=== PATIENT | male | born 1965 | race Caucasian/White ===

== ENCOUNTER → 2019-10-18 11:00 | Outpatient (BNVA) | payer MEDICAID, SELFPAY | PROVIDERS: Family Provider Nurse Practitioner Family; PCP Nurse Practitioner Family; Visit Provider Internal Medicine | DX: R76.8 Other specified abnormal immunological findings in serum (principal); B19.20 Unspecified viral hepatitis C without hepatic coma | CPT/HCPCS: 80053; 82105; 85025; 87522; 87902 ==

== ENCOUNTER 2019-11-01 06:49 | Outpatient (CLI) | payer MEDICAID, SELFPAY ==
--- NOTE | 2019-11-01 07:15 | US_ITS ---
WS: [id number] RIGHT UPPER QUADRANT ULTRASOUND HISTORY: hepatitis c COMPARISON: None available. Liver: 17.7 cm in length. Very slightly enlarged liver. No mass or bile duct dilatation. Normal echog enicity. Gallbladder: Normally distended gallbladder with no stones or wall thickening. CBD: 4.6 cm Pancreas: Normal size and echogenicity. Right kidney: 9.7 cm in length. Normal echogenicity with no mass or hydronephrosis. Aorta and IVC: Mild atherosclerosis aorta with no aneurysm. No ascites. US/US liver [id number] IMPRESSION: 1. Minimal hepatomegaly. 2. Normal gallbladder.
== END 2019-11-01 06:50 | disposition home or self-care (01) ==
PROVIDERS: PCP Nurse Practitioner; Visit Provider Internal Medicine
DX: B19.20 Unspecified viral hepatitis C without hepatic coma (principal); R16.0 Hepatomegaly, not elsewhere classified
CPT/HCPCS: 76705

== ENCOUNTER → 2019-11-08 14:00 | Outpatient (BNVA) | payer MEDICAID, SELFPAY | PROVIDERS: PCP Nurse Practitioner; Visit Provider Nurse Practitioner Psychiatric/Mental Health | DX: F33.1 Major depressive disorder, recurrent, moderate (principal); F41.1 Generalized anxiety disorder; F15.21 Other stimulant dependence, in remission; F17.210 Nicotine dependence, cigarettes, uncomplicated | CPT/HCPCS: 99214 ==

== ENCOUNTER 2020-01-25 10:28 | Outpatient (CLI) | payer MEDICAID, SELFPAY ==
[2020-01-28 23:01] LABS: HEP C RNA Viral Load Quant <1.18 NOT DETECTED Log IU/mL (NOT DETECTED); HEP C RNA Viral Load Quant <15 NOT DETECTED IU/mL (NOT DETECTED)
== END 2020-01-25 10:29 | disposition home or self-care (01) ==
LOC: LAB 10:31
PROVIDERS: PCP Nurse Practitioner; Visit Provider Internal Medicine
DX: R76.8 Other specified abnormal immunological findings in serum (principal)
CPT/HCPCS: 87522

== ENCOUNTER → 2020-03-24 07:37 | Outpatient (BNVA) | payer MEDICAID, SELFPAY | PROVIDERS: PCP Nurse Practitioner; Visit Provider Nurse Practitioner Psychiatric/Mental Health | DX: F33.1 Major depressive disorder, recurrent, moderate (principal); F41.1 Generalized anxiety disorder; F15.21 Other stimulant dependence, in remission; F17.210 Nicotine dependence, cigarettes, uncomplicated; Z03.89 Encounter for observation for other suspected diseases and conditions ruled out | CPT/HCPCS: 99213 ==

== ENCOUNTER → 2020-04-23 14:20 | Outpatient (BNVA) | payer MEDICAID, SELFPAY | PROVIDERS: PCP Nurse Practitioner; Visit Provider Nurse Practitioner Family | DX: Z20.828 Contact with and (suspected) exposure to other viral communicable diseases (principal) | CPT/HCPCS: 87635 ==

== ENCOUNTER → 2020-05-19 13:28 | Outpatient (BNVA) | payer MEDICAID, SELFPAY | PROVIDERS: PCP Nurse Practitioner; Referring Provider Nurse Practitioner; Visit Provider Dermatology | DX: D48.5 Neoplasm of uncertain behavior of skin (principal); L82.1 Other seborrheic keratosis; L72.0 Epidermal cyst; F17.210 Nicotine dependence, cigarettes, uncomplicated | CPT/HCPCS: 11102; 88304; 99203; 99204 ==

== ENCOUNTER 2020-05-26 12:43 | Outpatient (CLI) | payer MEDICAID, SELFPAY ==
--- NOTE | 2020-05-26 13:00 | CT_ITS ---
WS: [id number] LDCT LUNG CANCER SCREENING TECHNIQUE: Noncontrast CT of the chest with coronal and sagittal reformatted images. CLINICAL INFORMATION: intermediate frame tender smoker COMPARISON: None. DLP: 76.45 mGy.cm DIvol: 1.[address] scans at [facility] use at least one of these dose optimization techniques: automat ed exposure control; mA and/or kV adjustment per patient size (includes targeted exams where dose is matched to clinical indication); or iterative reconstruction. FINDINGS: Moderate chronic resonance changes. Preseptal emphysematous change. Bulla formation in the lung apice s. Subsegmental atelectasis in the lung bases. Normal thyroid gland. No mediastinal or hilar lymphade nopathy. CT/CT lung screening [id number] IMPRESSION: LUNG-RADS: 1-Negative FOLLOW UP: 12 Month: Continue annual screening with LDCT
== END 2020-05-26 12:44 | disposition home or self-care (01) ==
LOC: CT 12:44
PROVIDERS: PCP Nurse Practitioner; Visit Provider Nurse Practitioner
DX: Z12.2 Encounter for screening for malignant neoplasm of respiratory organs (principal); F17.210 Nicotine dependence, cigarettes, uncomplicated
CPT/HCPCS: G0297

== ENCOUNTER → 2020-06-16 07:37 | Outpatient (BNVA) | payer MEDICAID, SELFPAY | PROVIDERS: PCP Nurse Practitioner; Visit Provider Nurse Practitioner Psychiatric/Mental Health | DX: F33.1 Major depressive disorder, recurrent, moderate (principal); F41.1 Generalized anxiety disorder; F15.21 Other stimulant dependence, in remission; F17.210 Nicotine dependence, cigarettes, uncomplicated; Z03.89 Encounter for observation for other suspected diseases and conditions ruled out | CPT/HCPCS: 99213 ==

== ENCOUNTER 2020-08-31 21:40 | Emergency (ER) | payer MEDICAID, SELFPAY ==
[2020-08-31] VITALS (7 sets, daily range): BP systolic 114–118; BP diastolic 72–86; PULSE 65–88; RESP 16; TEMP 36.7–37; O2SAT 92–97; BMI 20.9
--- NOTE | 2020-08-31 21:51 | ED_ITS ---
HPI - Seizure General: Chief Complaint: Seizure Stated Complaint: SEIZURE Time Seen by Provider: 08/31/20 21:50 History of Present Illness: HPI Narrative: Patient is a 55-year-old male comes to the ED via EMS after seizure. Seizure occurred approximately 45 minutes prior to arrival. EMS said that when they arrived he was in postictal state. Patient has a past medical history of seizures and sees Dr. Raphael. He currently takes gabapentin and alprazolam for his seizures. He says for the past couple days he has been out of town and forgot to bring his seizure meds with them. He has not taken them for couple days now. Currently he has some right shoulder pain and a headache. Denies any other symptoms such as vision changes, numbness weakness or tingling to extremities or face, chest pain or shortness of breath. Patient says he does not need any refill on his gabapentin and alprazolam. He says he has meds at home and will be heading back to his house tonight. Associated symptoms: Deny chest pain, chills or fever(s) Review of Systems Const: Denies: fever(s), chills or fatigue Eyes: Denies: change in vision or eye discomfort ENMT: Denies: throat pain, odynophagia, nasal discharge or nasal congestion Card: Denies: chest pain, palpitations, edema, swelling of feet/ankles, dyspnea on exertion or orthopnea Resp: Denies: dyspnea, productive cough or non-productive cough GI: Denies: abdominal pain, nausea, vomiting, diarrhea, constipation or hematochezia : Denies: flank pain, difficulty urinating, dysuria or hematuria Musc: Reports: extremity pain (right shoulder pain); Denies: neck pain, back pain or extremity swelling Skin/Breast: Denies: rash or new lesions Neuro: Reports: headache(s) and seizure-like activity (seizure just prior to arrival); Denies: numbness in extremities or weakness in extremities PFS ED PFSH: Medical History Amphetamine substance use disorder, moderate, in sustained remission Generalized anxiety disorder Hepatitis C antibody positive in blood Major depressive disorder, recurrent episode, moderate with anxious distress Neural foraminal stenosis of cervical spine Nicotine dependence, cigarettes, uncomplicated Surgical History History of appendectomy History of esophagogastroduodenoscopy (EGD) 2013 History of foot surgery History of fusion of cervical spine History of rotator cuff surgery 8 times total 5 on right and 3 on left History of tonsillectomy and adenoidectomy Family History Father Cancer prostate Social History Smoking and tobacco status: current every day smoker Second hand smoke exposure: No Smoking risk assessment/counseling performed?: No Alcohol intake: unknown Desire information about alcohol rehabilitation?: No Counseling given: No Desire information about substance/drug rehabilitation?: No Counseling given: No Caregiver/support person: No Lives independently: Yes Household members: spouse Housing: House Marital status: Number of children: 1 service: No Current occupational status: disabled History of recent travel: No Current gender identity: Male Physical Exam Const: COMMON NORMALS: patient oriented x3 and alert HENMT: COMMON NORMALS: normocephalic HEAD & SCALP: normocephalic MOUTH: Normal oral and palatal mucosa present THROAT: posterior oropharynx normal and uvula midline Eye: COMMON NORMALS: Equal, round and reactive pupils present, EOMs intact bilaterally and normal visual villagran by confrontation PUPIL: Yes Equal, round and reactive pupils present Neck/C-Spine: COMMON NORMALS: supple GENERAL: Yes normal visual inspection Resp: COMMON NORMALS: normal respiratory effort, No retractions, No use of accessory muscles and clear to auscultation bilaterally AUSCULTATION: clear to auscultation bilaterally Cardio: COMMON NORMALS: regular rate, regular rhythm, S1 normal heart sound present, S2 normal heart sound present, No gallops present (Cardio), No clicks present (Cardio), No murmurs present (Cardio) and Peripheral pulses 2+ throughout RATE: regular rate RHYTHM: regular rhythm HEART SOUNDS: S1 normal heart sound present and S2 normal heart sound present PERIPHERAL PULSES: Peripheral pulses 2+ throughout GI: COMMON NORMALS: Normal to inspection, nondistended, normoactive bowel sounds present, Soft to palpation, non-tender and no masses PALPATION: Yes Soft to palpation : COMMON NORMALS: Yes no CVA tenderness BLADDER/KIDNEY EXAM: Yes no CVA tenderness Back/Pelvis: COMMON NORMALS: no CVA tenderness Extremity: NARRATIVE EXTREMITY EXAM: Patient's right shoulder has tenderness to palpation over the anterior aspect no edema, ecchymosis or visible deformity seen. Neurovascular intact distally. GENERAL: Yes normal exam except as noted Neuro: MILAGRO COMA SCALE: document GCS findings Milagro coma scale eye opening: Spontaneous Clinton coma scale verbal response: Orientated Clinton coma scale motor response: Obey commands Clinton coma scale total score: 15 COMMON NORMALS: patient oriented x3, CN's II-XII intact bilaterally, moves all extremities, no focal motor deficits and no sensory deficits noted SENSORIUM/ORIENTATION: Yes alert CRANIAL NERVES: Yes CN normal except as noted COORDINATION/BALANCE: [id number] test normal SENSORY EXAM: Yes extremities (Soft touch sensation intact to all extremities.) MOTOR EXAM: 5/5 motor strength present throughout COORDINATION: [id number]-[id number] test normal Skin: GENERAL SKIN EXAM: dry skin Course Vital Signs: Vital signs: Vital Signs Temperature 98.1 F 08/31/20 23:58 Pulse Rate 69 08/31/20 23:58 Respiratory Rate 16 08/31/20 23:58 Blood Pressure 117/72 08/31/20 23:58 Pulse Oximetry 93 08/31/20 23:58 MDM - Seizure MDM Narrative: Medical decision making narrative: Patient is a 55-year-old male comes to the ED after having a seizure. Patient has history of seizures and takes gabapentin and alprazolam for them. Patient was traveling away from home over the past couple days and forgot to bring his seizure meds, so he has not been taking them for couple days. His only complaint after seizure was a headache and right shoulder pain. Patient came into the ED and was alert and oriented x3. Neuro exam was normal. CT of head showed no acute findings and CT of cervical spine showed no acute fractures. Right shoulder x-ray shows a lot of chronic joint deterioration and bone calcification, but no acute fractures. Patient was needing an orthopedic referral for his right shoulder since his recent orthopedic doctor retired. I placed an order with case management for patient be referred to orthopedic doctor-patient would like to see Dr. Chaudhry. Patient was given Ativan while here in the ED the had no other seizure activity while here. Patient told to follow-up with his PCP in 7 to 10 days. He was informed that wrapper caser will be contacting him in the next several days set up appoint with orthopedic doctor. Return to ED precautions given. He was told to make sure he takes his antiseizure meds as prescribed to prevent any more seizures. Patient understood and agreed with plan. Imaging Data^: CT Head: Attestation: I personally reviewed and interpreted this imaging study as follows: Radiologist's impression: [employer] [place] [address] CT Scan Report Signed Patient: Pal Galindo Unit #: [id number] : 1965 Age/Sex: 55 / M ADM Date: 08/31/20 Loc: ER Room/Bed: Attending Dr: Ordering Provider/Ordering MD: Elvis Mcgee Date of Service: 08/31/20 Procedure(s): CT head wo con* [id number] Accession Number(s): [id number] Report Number: [id number] PROCEDURE INFORMATION: Exam: CT Head Without Contrast Exam date and time: 08/31/2020 9:56 PM Age: 55 years old Clinical indication: Condition or disease; Convulsions or seizures; Patient HX: S/P tonic clonic seizure TECHNIQUE: Imaging protocol: Computed tomography of the head without contrast. Total images: 190 Radiation optimization: All CT scans at this facility use at least one of these dose optimization techniques: automated exposure control; mA and/or kV adjustment per patient size (includes targeted exams where dose is matched to clinical indication); or iterative reconstruction. COMPARISON: CT head wo con* [id number] 04/15/2017 12:05 PM RADIATION DOSE METRICS: Total DLP (mGy-cm): 753.46 FINDINGS: Brain: No evidence of active or acute intracranial pathologic process, hemorrhage, or trauma. No visible evidence of diffuse cerebral edema or generalized demyelination. Unremarkable white matter. No mass effect. No midline shift. Cerebral ventricles: No ventriculomegaly. Bones/joints: Unremarkable. No acute fracture. Paranasal sinuses: Visualized sinuses are unremarkable. No fluid levels. Mastoid air cells: Visualized mastoid air cells are well aerated. Soft tissues: Unremarkable. CT/CT head wo con* [id number] IMPRESSION: No acute intracranial abnormality. Radiation Dose CTDIVOL = (mGy): DLP = 753.46 (mGy-cm) Dictated By: Merrick Vazquez Signed By: Merrick Vazquez Signed Date/Time: 08/31/202219 DD/ [address]: Attestation: I personally reviewed and interpreted this imaging study as follows: Radiologist's impression: [employer] [place] [address] CT Scan Report Signed Patient: Pal Galindo Unit #: [id number] : [id number] Age/Sex: 55 / M ADM Date: 08/31/20 Loc: ER Room/Bed: Attending Dr: Ordering Provider/Ordering MD: Elvis Mcgee Date of Service: 08/31/20 Procedure(s): CT cervical spin wo con* [id number] Accession Number(s): [id number] Report Number: [id number] PROCEDURE INFORMATION: Exam: CT Cervical Spine Without Contrast Exam date and time: 08/31/2020 9:56 PM Age: 55 years old Clinical indication: Injury or trauma; Blunt trauma; Prior surgery; Surgery date: 6+ months; Surgery type: Acdf; Patient HX: S/P tonic clonic seizure C/O neck/r shoulder pain TECHNIQUE: Imaging protocol: Computed tomography images of the cervical spine without contrast. Total images: 269 Radiation optimization: All CT scans at this facility use at least one of these dose optimization techniques: automated exposure control; mA and/or kV adjustment per patient size (includes targeted exams where dose is matched to clinical indication); or iterative reconstruction. COMPARISON: CT Cervical Spine wo* [id number] 08/24/2017 4:08 AM RADIATION DOSE METRICS: Total DLP (mGy-cm): 480.14 FINDINGS: Bones/joints: No visible fracture, subluxation, or dislocation. Status post fusion with anterior compression plate and screw fixation C3, C4, and C5. Advanced degenerative disease with spondylosis deformans. Degenerative disease of the joints of Luschka. Facet arthrosis most advanced on the left C5/C6 with subchondral cyst formation. Bone cyst T1 vertebral body. Minimal scoliotic curvature. Discs/Spinal canal/Neural foramina: Advanced degenerative disc disease with disc space height loss C5/C6, C6/C7, C7/T1, and T1/T2. Mild posterior disc bulge osteophyte complex C5/C6 and C6/C7 without severe central canal stenosis. No visible significant central canal stenosis. No appreciable significant will change since 08/24/2017. Lungs: Limited assessment lung apices reveals bullous emphysema. Soft tissues: Unremarkable. CT/CT cervical spin wo con* [id number] IMPRESSION: 1. No visible acute osseous abnormality. 2. Advanced degenerative disease and degenerative disc disease. 3. Previous fusion with anterior compression plate and screw fixation C3 through C5. Radiation Dose CTDIVOL = (mGy): DLP = 480.14 (mGy-cm) Dictated By: Merrick Vazquez Signed By: Merrick Vazquez Signed Date/Time: 08/31/202224 DD/ 23 Discharge Plan Discharge Patient Disposition: Home Clinical Impression: Generalized seizure Right shoulder pain Qualifiers: Chronicity: acute Qualified Code(s): M25.511 - Pain in right shoulder Condition: Stable Prescriptions: No Action albuterol sulfate [ProAir HFA] 90 mcg/actuation HFA aerosol inhaler 2 puff INHALATION Q6H PRN (Reason: wheezing) Qty: 8.5 RF: 5 alprazolam 1 mg tablet 1 mg PO TID Qty: 90 RF: 3 trazodone 150 mg tablet 150 mg PO .bedtime PRN (Reason: sleep) Qty: 90 RF: 3 buprenorphine HCl 8 mg tablet, sublingual 8 mg SUBLINGUAL BID RF: 0 mupirocin 2 % ointment 1 applic TOPICAL TID Qty: 22 RF: 0 sofosbuvir-velpatasvir [Epclusa] 400-100 mg tablet 1 tab PO DAILY 84 Days Qty: 28 RF: 2 epinephrine 0.3 mg/0.3 mL auto-injector 0.3 mg IM ONCE PRN (Reason: anaphylaxis) Qty: 1 RF: 0 gabapentin 300 mg capsule 300 mg PO BID Qty: 60 RF: 2 Discharge Orders: Discharge ED (Routine); Ordered 08/31/20 Ordered By: Elvis Mcgee Referrals: Alessia German, [facility] [Primary Care Provider] - Discharge Diet: Regular Discharge Activity: Increase activity as tolerated Patient Instructions: Epilepsy (ED) Activity Restrictions/Additional Instructions: Follow-up with medical provider as directed. Case management will contact you in the next several days set up appointment with orthopedic doctor. take medications as prescribed. Return to the ER or your medical provider if condition worsens. Please read and understand discharge instructions. If any questions, please ask. Coding Level of Care Code ED Sec Accountant for Maria Luisa Fwd Exam Comprehensive
--- NOTE | 2020-08-31 21:59 | XRR_ITS ---
PROCEDURE INFORMATION: Exam: XR Right Shoulder Exam date and time: 08/31/2020 10:06 PM Age: 55 years old Clinical indication: Pain; Shoulder; Right; Prior surgery; Additional info: Shoulder pain TECHNIQUE: Imaging protocol: XR Right shoulder. Views: 2 or more views. COMPARISON: CR Shoulder 2+ views RIGHT* [id number] 03/14/2016 9:59 AM FINDINGS: Bones/joints: Postsurgical changes are present in the right shoulder. There is an anchor in the humeral head from rotator cuff repair. The distal end of the clavicle has been resected. There is superior subluxation of the humeral head in relation to the glenoid consistent with chronic rotator cuff tear degeneration. Chronic degenerative bony erosions are present on the humeral head and acromion. No fracture or other acute abnormalities are seen. Soft tissues: Normal. XR/XR shoulder RT min 2V* [id number] IMPRESSION: 1. Postsurgical changes and prominent chronic degenerative disease. 2. No acute abnormality is seen.
[2020-08-31] MEDS: LORazepam 2 mg/mL INJ 1 mL IM (22:13)
--- NOTE | 2020-08-31 22:25 | PC.NURSE ---
Patients oxygen saturation dropped to 88% after ativan administration. Patient placed on 2 liters of oxygen via nasal cannula.
[2020-08-31] MEDS: morphine 4 mg/mL SDV 1 mL IVP (23:36)
[2020-08-31] MEDS: LORazepam 2 mg Tablet PO (23:37)
--- NOTE | 2020-09-01 08:15 | DCPLANNER ---
manager terminal had message to schedule a follow up appointment for patient with ortho. manager terminal called the ortho clinic, spoke with Caroline, gave clinic patients information. manager terminal was told that patients information would be printed and reviewed. Clinic will call patient with appointment information.
--- NOTE | 2020-09-03 14:01 | DCPLANNER ---
Patient has a follow up appointment scheduled for Wednesday, September 09, [address] at 8:[address] Chaudhry. Clinic will call patient with appointment information.
--- NOTE | 2020-10-17 14:28 | DCPLANNER ---
Patient had a follow up appointment scheduled for 09.09.20 with ortho - patient did attend appointment.
== END 2020-09-01 | disposition home or self-care (01) ==
PROVIDERS: Emergency Provider Physician Assistant; PCP Nurse Practitioner
DX: G40.409 Other generalized epilepsy and epileptic syndromes, not intractable, without status epilepticus (principal); M25.511 Pain in right shoulder; Z86.19 Personal history of other infectious and parasitic diseases; F17.210 Nicotine dependence, cigarettes, uncomplicated
CPT/HCPCS: 12345; 70450; 72125; 73030; 96374; 96375; 99283; 99284; J2060; J2270

== ENCOUNTER → 2020-10-15 08:47 | Outpatient (BNVA) | payer MEDICAID, SELFPAY | PROVIDERS: PCP Nurse Practitioner; Visit Provider Nurse Practitioner Psychiatric/Mental Health | DX: F33.1 Major depressive disorder, recurrent, moderate (principal); F41.1 Generalized anxiety disorder; F15.21 Other stimulant dependence, in remission; F17.210 Nicotine dependence, cigarettes, uncomplicated | CPT/HCPCS: 99214 ==

== ENCOUNTER 2020-11-19 15:21 | Emergency (ER) | payer MEDICAID, SELFPAY ==
[2020-11-19 15:24] VITALS: BP 155/93; PULSE 69; RESP 16; TEMP 36.8; O2SAT 96; BMI 19.7
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
[2020-11-19 15:49] VITALS: RESP 18; O2SAT 98
[2020-11-19] MEDS: fentaNYL 50 mcg/mL INJ 2mL IVP (15:49)
[2020-11-19] MEDS: iohexol 300 mg/mL 100 mL Btl IV (15:58)
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
[2020-11-19] MEDS: ketorolac 30 mg/mL INJ IVP (16:28)
[2020-11-19 16:32] LABS: Basophils % 0.4 %; Eosinophils # 0.1 10^3/uL (0.0-0.8); Eosinophils % 0.6 %; Hematocrit 46.4 % (42.0-52.0); Hemoglobin 15.3 g/dL (11.7-16.6); Lymphocytes # 1.8 10^3/uL (0.8-4.8); Lymphocytes % 19.3 %; Mean Corpuscular Hemoglobin 31.2 pg (28.0-34.0); Mean Corpuscular Volume 94.7 fL (80-94); Mean Platelet Volume 10.9 fL (7.4-10.4); Monocytes # 0.5 10^3/uL (0.2-0.9); Monocytes % 5.6 %; Neutrophils # 6.92 10^3/uL (1.8-7.7); Neutrophils % 73.7 %; Nucleated Red Blood Cells % 0 %; Platelet Count 286 10^3/cmm (130-400); White Blood Count 9.4 10^3/uL (4.0-10.0)
[2020-11-19 16:48] LABS: Alanine Aminotransferase 12 U/L (0-41); Albumin Level 4.4 g/dL (3.5-5.2); Alkaline Phosphatase 73 IU/L (40-130); Anion Gap 12.4 (5-19); Aspartate Amino Transferase 15 U/L (0-40); Blood Urea Nitrogen 9 mg/dL (6-20); Calcium 9.5 mg/dL (8.5-10.5); Carbon Dioxide 28 mmol/L (22-29); Chloride 103 mmol/L (98-107); Globulin 3.1 g/dL (1.3-4.6); Glomerular Filtration Rate 116.7 mL/min (90-130); Glucose 91 mg/dL (65-115); Osmolality Calculated 286 mOsm/kg (285-295); Potassium 4.4 mmol/L (3.5-5.1); Sodium 139 mmol/L (136-145); Total Bilirubin 0.3 mg/dL (0.15-1.2); Total Protein 7.5 g/dL (6.6-8.7)
[2020-11-19 17:11] VITALS: BP 123/84; PULSE 48; RESP 24; O2SAT 96
[2020-11-19 17:25] VITALS: RESP 18; O2SAT 98
[2020-11-19] MEDS: morphine 4 mg/mL SDV 1 mL IVP (17:25)
[2020-11-19] MEDS: ondansetron 2 mg/ML SDV 2 mL 4 MG IVP (17:25)
[2020-11-19 17:31] VITALS: BP 133/77; PULSE 53; RESP 18; O2SAT 97
--- NOTE | 2020-11-20 08:17 | DCPLANNER ---
manufacturing quality manager had message to schedule a follow up appointment for patient with ENT. manufacturing quality manager emailed patients information to Yenny Meneses and [facility] at [facility] General Surgery. Patients information will be printed and reviewed. Clinic will call patient with appointment information.
--- NOTE | 2020-11-25 07:25 | DCPLANNER ---
Patient has a follow up appointment scheduled for , November 26, 2020 at 1:[address] Harding at [facility]. Clinic will call patient with appointment information.
--- NOTE | 2021-01-01 09:14 | DCPLANNER ---
Patient had a follow up appointment scheduled for 11.26.20 at 1:[address] Harding at ENT clinic - patient did not attend appointment.
== END 2020-11-19 17:33 | disposition home or self-care (01) ==
PROVIDERS: Emergency Provider Family Medicine; PCP Nurse Practitioner
DX: S02.2XXA Fracture of nasal bones, initial encounter for closed fracture (principal); M54.5 Low back pain; Z86.19 Personal history of other infectious and parasitic diseases; F17.210 Nicotine dependence, cigarettes, uncomplicated; V57.5XXA Driver of pick-up truck or van injured in collision with fixed or stationary object in traffic accident, initial encounter
CPT/HCPCS: 70486; 71260; 74177; 80053; 85025; 96374; 96375; 99284; J1885; J2270; J2405; J3010; Q9967

== ENCOUNTER → 2021-01-13 08:03 | Outpatient (BNVA) | payer MEDICAID, SELFPAY | PROVIDERS: PCP Nurse Practitioner; Visit Provider Nurse Practitioner Psychiatric/Mental Health | DX: F33.1 Major depressive disorder, recurrent, moderate (principal); F41.1 Generalized anxiety disorder; F15.21 Other stimulant dependence, in remission; F17.210 Nicotine dependence, cigarettes, uncomplicated | CPT/HCPCS: 99214 ==

== ENCOUNTER → 2021-03-25 14:38 | Outpatient (BNVA) | payer MEDICAID, SELFPAY | PROVIDERS: PCP Nurse Practitioner; Visit Provider Nurse Practitioner Family | DX: Z20.828 Contact with and (suspected) exposure to other viral communicable diseases (principal) | CPT/HCPCS: 87635 ==

== ENCOUNTER → 2021-04-07 07:17 | Outpatient (BNVA) | payer MEDICAID, SELFPAY | PROVIDERS: PCP Nurse Practitioner; Visit Provider Nurse Practitioner Psychiatric/Mental Health | DX: F33.1 Major depressive disorder, recurrent, moderate (principal); F41.1 Generalized anxiety disorder; F15.21 Other stimulant dependence, in remission; F17.210 Nicotine dependence, cigarettes, uncomplicated | CPT/HCPCS: 99214 ==

== ENCOUNTER → 2021-05-08 07:11 | Outpatient (BNVA) | payer MEDICAID, SELFPAY | PROVIDERS: PCP Nurse Practitioner; Visit Provider Nurse Practitioner Psychiatric/Mental Health | DX: F33.1 Major depressive disorder, recurrent, moderate (principal); F41.1 Generalized anxiety disorder; F15.21 Other stimulant dependence, in remission; F17.210 Nicotine dependence, cigarettes, uncomplicated | CPT/HCPCS: 99214 ==

== ENCOUNTER → 2021-06-09 07:49 | Outpatient (BNVA) | payer MEDICAID, SELFPAY | PROVIDERS: PCP Nurse Practitioner; Visit Provider Nurse Practitioner Psychiatric/Mental Health | DX: F33.1 Major depressive disorder, recurrent, moderate (principal); F41.1 Generalized anxiety disorder; F15.21 Other stimulant dependence, in remission; F17.210 Nicotine dependence, cigarettes, uncomplicated | CPT/HCPCS: 99214 ==

== ENCOUNTER → 2021-08-10 07:53 | Outpatient (BNVA) | payer MEDICAID, SELFPAY | PROVIDERS: PCP Nurse Practitioner; Visit Provider Nurse Practitioner Psychiatric/Mental Health | DX: F33.1 Major depressive disorder, recurrent, moderate (principal); F41.1 Generalized anxiety disorder; F15.21 Other stimulant dependence, in remission; F17.210 Nicotine dependence, cigarettes, uncomplicated | CPT/HCPCS: 99214 ==

== ENCOUNTER → 2021-09-15 16:56 | Outpatient (BNVA) | payer MEDICAID, SELFPAY | PROVIDERS: PCP Nurse Practitioner; Visit Provider Nurse Practitioner Family | DX: L08.9 Local infection of the skin and subcutaneous tissue, unspecified (principal); T14.8XXA Other injury of unspecified body region, initial encounter; X58.XXXA Exposure to other specified factors, initial encounter | CPT/HCPCS: 87070; 87075; 87077; 87184; 87205 ==

== ENCOUNTER 2021-10-01 10:48 | Outpatient (CLI) | payer MEDICAID, SELFPAY ==
--- NOTE | 2021-10-01 10:58 | XRR_ITS ---
PROCEDURE INFORMATION: Exam: XR Right Elbow Exam date and time: 10/01/2021 10:58 AM Age: 56 years old Clinical indication: Injury or trauma; Fall; Blunt trauma (contusions or hematomas); Elbow; Right; Injury date: 2 weeks ago; Additional info: T14.8xxa - other injury of unspecified body region, initi. . . TECHNIQUE: Imaging protocol: XR Right elbow. Views: 3 or more views. COMPARISON: CR Elbow 3 views, RIGHT* [id number] 03/14/2016 9:59 AM FINDINGS: Bones/joints: No fracture. No dislocation. No anterior or posterior fat pad sign. Soft tissues: There is superficial soft tissue swelling posterior to the olecranon which could be due to a contusion/hematoma given the history of trauma. The differential diagnosis would include olecranon bursitis. XR/XR elbow RT min 3V* [id number] IMPRESSION: No acute osseous abnormality.
== END 2021-10-01 10:49 | disposition home or self-care (01) ==
LOC: RAD 10:52
PROVIDERS: PCP Nurse Practitioner; Visit Provider Nurse Practitioner Family
DX: S59.901A Unspecified injury of right elbow, initial encounter; X58.XXXA Exposure to other specified factors, initial encounter; A49.02 Methicillin resistant Staphylococcus aureus infection, unspecified site; L08.9 Local infection of the skin and subcutaneous tissue, unspecified
CPT/HCPCS: 73080

== ENCOUNTER → 2021-11-03 08:12 | Outpatient (BNVA) | payer MEDICAID, SELFPAY | PROVIDERS: PCP Nurse Practitioner; Visit Provider Nurse Practitioner Psychiatric/Mental Health | DX: F33.1 Major depressive disorder, recurrent, moderate (principal); F41.1 Generalized anxiety disorder; F15.21 Other stimulant dependence, in remission; F17.210 Nicotine dependence, cigarettes, uncomplicated | CPT/HCPCS: 99214 ==

== ENCOUNTER → 2022-02-16 08:22 | Outpatient (BNVA) | payer MEDICAID, SELFPAY | PROVIDERS: PCP Nurse Practitioner; Visit Provider Nurse Practitioner Psychiatric/Mental Health | DX: F33.1 Major depressive disorder, recurrent, moderate (principal); F41.1 Generalized anxiety disorder; F15.21 Other stimulant dependence, in remission; F17.210 Nicotine dependence, cigarettes, uncomplicated | CPT/HCPCS: 99214 ==

== ENCOUNTER → 2022-12-24 09:39 | Outpatient (BNVA) | payer MEDICAID, SELFPAY | PROVIDERS: PCP Nurse Practitioner; Visit Provider Nurse Practitioner Family | DX: M25.531 Pain in right wrist (principal); Z98.890 Other specified postprocedural states; M89.8X3 Other specified disorders of bone, forearm | CPT/HCPCS: 73110 ==